=== PATIENT | female | born 1990 | race Caucasian/White ===

== ENCOUNTER → 2017-11-28 | Emergency (ER) | payer MEDICAID ==
[~2017-11-28] VITALS: Ht 170.2 cm; Wt 58.9 kg
[~2017-11-28] MED LIST: BUPIVAcaine/PF 2.5 mg/ml (0.25%) 30ml vial IJ ONE; CEPH500C5 PO; IBUP-1984 PO; TETanus/Pertussis (Acell)/Diphther VAC/PF (Tdap-Adult) 0.5ml syringe IM ONE
[2017-11-28 19:43] VITALS: BP 117/97
== END | disposition home or self-care (01) ==
LOC: ER 19:41
DX: S61.211A Laceration without foreign body of left index finger without damage to nail, initial encounter (principal); W45.8XXA Other foreign body or object entering through skin, initial encounter; Y93.89 Activity, other specified; Y92.89 Other specified places as the place of occurrence of the external cause; Y99.9 Unspecified external cause status
CPT/HCPCS: 12001; 90471; 90715; 99283; A6449; J3490

== ENCOUNTER 2017-11-30 09:17 | Emergency (ER) | payer MEDICAID ==
[~2017-11-30] VITALS: Ht 170.2 cm; Wt 71.0 kg
[~2017-11-30 09:17] MED LIST changes: -BUPIVAcaine/PF 2.5 mg/ml (0.25%) 30ml vial IJ ONE; -CEPH500C5 PO; -TETanus/Pertussis (Acell)/Diphther VAC/PF (Tdap-Adult) 0.5ml syringe IM ONE
[2017-11-30 09:30] VITALS: BP 163/73
[2017-11-30] MEDS ORDERED: CEPH500C5 PO (10:57)
== END 2017-11-30 11:09 | disposition home or self-care (01) ==
LOC: ER 09:18
DX: L08.89 Other specified local infections of the skin and subcutaneous tissue (principal); S61.211D Laceration without foreign body of left index finger without damage to nail, subsequent encounter; W45.8XXD Other foreign body or object entering through skin, subsequent encounter
CPT/HCPCS: 99283

== ENCOUNTER 2017-12-07 08:46 | Emergency (ER) | payer MEDICAID ==
[~2017-12-07] VITALS: Ht 170.2 cm; Wt 63.6 kg
[~2017-12-07 08:46] MED LIST changes: +CEPH500C5 PO
[2017-12-07 09:04] VITALS: BP 120/74
== END 2017-12-07 09:48 | disposition home or self-care (01) ==
LOC: ER 08:46
DX: Z48.02 Encounter for removal of sutures (principal); Z79.899 Other long term (current) drug therapy
CPT/HCPCS: 99281

== ENCOUNTER 2018-04-07 20:36 | Emergency (ER) | payer MEDICAID ==
[~2018-04-07] VITALS: Ht 170.2 cm; Wt 71.1 kg
[~2018-04-07 20:36] MED LIST changes: -IBUP-1984 PO
[2018-04-07 21:36] VITALS: BP 137/79
== END 2018-04-08 02:56 | disposition left against medical advice (07) ==
LOC: ER 20:36
DX: J45.909 Unspecified asthma, uncomplicated (principal); Z53.21 Procedure and treatment not carried out due to patient leaving prior to being seen by health care provider

== ENCOUNTER 2018-04-20 15:35 | Emergency (ER) | payer MEDICAID ==
[~2018-04-20] VITALS: Ht 170.2 cm; Wt 67.8 kg
[2018-04-20] MEDS ORDERED: normal saline 1000ML IV soln IVB ONE (15:45)
[2018-04-20] MEDS ORDERED: albuterol 2.5 MG/3 ML nebule CONTNEB PRN (15:45)
[2018-04-20] MEDS ORDERED: magnesium 1gm/100ml D5W IVPB 100 ML IV ONE (15:45)
[2018-04-20] MEDS ORDERED: methylPREDNISolone sod succ 125mg/2ml vial IV ONE (15:45)
[2018-04-20] MEDS ORDERED: ALBU6.7H INH (16:13)
[2018-04-20] MEDS ORDERED: PRED20TA PO (16:13)
[2018-04-20 17:06] VITALS: BP 134/76
== END 2018-04-20 17:09 | disposition home or self-care (01) ==
LOC: ER 15:35
DX: J45.901 Unspecified asthma with (acute) exacerbation (principal); Z79.899 Other long term (current) drug therapy
CPT/HCPCS: 71045; 94644; 96365; 96375; 99291; J2930; J7030; 94640

== ENCOUNTER 2018-09-01 08:29 | Emergency (ER) | payer MEDICAID ==
[~2018-09-01] VITALS: Ht 170.2 cm; Wt 69.5 kg
[~2018-09-01 08:29] MED LIST changes: +ALBU6.7H INH; +METH4TAB81 PO
[2018-09-01] MEDS ORDERED: magnesium 2GM in 50ml NS 50 ML IV ONE (08:50)
[2018-09-01] MEDS ORDERED: albuterol 2.5 MG/3 ML nebule CONTNEB PRN (08:50)
[2018-09-01] MEDS ORDERED: methylPREDNISolone sod succ 125mg/2ml vial IV ONE (08:50)
[2018-09-01] MEDS ORDERED: ipratropium 0.5 MG/2.5ML nebule IH ONE (08:50)
[2018-09-01] MEDS ORDERED: ipratropium/albuterol 3ml nebule NEB ONE (08:50)
[2018-09-01] MEDS ORDERED: normal saline 1000ML IV soln IVB ONE (08:55)
[2018-09-01 10:22] VITALS: BP 142/67
[2018-09-01] MEDS ORDERED: PRED20TA PO (11:29)
[2018-09-01] MEDS ORDERED: AZIT-63 PO (11:29)
== END 2018-09-01 12:34 | disposition home or self-care (01) ==
LOC: ER 08:30
DX: J45.909 Unspecified asthma, uncomplicated (principal); Z79.899 Other long term (current) drug therapy
CPT/HCPCS: 94640; 94760; 96365; 96375; 99284; J2930; J3475; J7030; 99283

== ENCOUNTER 2018-12-02 08:09 | Emergency (ER) | payer MEDICAID, OTHER ==
[~2018-12-02] VITALS: Ht 170.2 cm; Wt 72.7 kg
[~2018-12-02 08:09] MED LIST changes: -CEPH500C5 PO
--- NOTE | 2018-12-02 08:37 | NUR ---
DR ADRIAN NOTIFIED OF PT SOB AND SPO2 89% YOUNG PERSON HX OF ASTHMA AND COUGH, NO ORDER RECEIVED AT THIS TIME, ORDERED CHEST XRAY PER PROTOCOL
[2018-12-02] MEDS ORDERED: ipratropium/albuterol 3ml nebule NEB ONE (09:05)
[2018-12-02] MEDS ORDERED: methylPREDNISolone sod succ 125mg/2ml vial IV ONE (09:05)
[2018-12-02] MEDS ORDERED: normal saline 1000ML IV soln IVB ONE (09:05)
--- NOTE | 2018-12-02 09:43 | NUR ---
STARTED IV, MEDICATED PT WITH IV FLUIDS AND SOLUMEDROL, PT RECEIVED BREATHING TREATMENT PER ORDERS, LS STILL HAVING WHEEZES BUT IMPROVED LUNG SOUNDS AND SPO2 97% ON 2 L/MIN OXYGEN VIA NC
--- NOTE | 2018-12-02 10:18 | NUR ---
PT TAKEN OFF OF OXYGEN FOR ROOM AIR SPO2% RESULT.
[2018-12-02] MEDS ORDERED: albuterol 2.5 MG/3 ML nebule NEB ONE (10:20)
--- NOTE | 2018-12-02 10:23 | NUR ---
DR ADRIAN INFORMED ROOM AIR SPO2 93-94%, DR ADRIAN STATES WILL ORDER ANOTHER BREATHING TREATMENT AND THEN RE-EVALUATE PT AFTER REGARDING HOW PT IS FEELING GETTING UP AND WALKING AND HER ROOM AIR SPO2%.
[2018-12-02] MEDS ORDERED: albuterol 2.5 MG/3 ML nebule ONE (10:35)
--- NOTE | 2018-12-02 11:20 | NUR ---
PT SPO2% 90% ON ROOM AIR AFTER SECOND BREATHING TREATMENT, INSTRUCTED PT TO DEEP BREATH AND COUGH A COUPLE OF TIMES.
--- NOTE | 2018-12-02 11:31 | NUR ---
DR ADRIAN INFORMED PT IS FEELING BETTER AFTER SECOND BREATHING TREATMENT BUT SPO2 90%, VERBAL REQUEST TO AMBULATE PT WITH PULSE OX AND REPORT BACK TO NGUYỄN HOW PT FEELS AND SPO2%
--- NOTE | 2018-12-02 11:37 | NUR ---
ROSANNE PHYSICAL TRAINER AMBULATED PT AND PT SPO2 89-90% HEART RATE UP TO 104 AND THEN BACK INTO THE 90S BACK IN BED 11
--- NOTE | 2018-12-02 11:43 | NUR ---
DR ADRIAN TO SPEAK WITH PT ABOUT BEING ADMITTED VS DISCHARGE HOME.
[2018-12-02 12:04] VITALS: BP 149/78
[2018-12-02] MEDS ORDERED: PRED20TA PO (12:06)
== END 2018-12-02 12:29 | disposition home or self-care (01) ==
LOC: ER 08:09
DX: J45.901 Unspecified asthma with (acute) exacerbation (principal); Z79.899 Other long term (current) drug therapy
CPT/HCPCS: 71045; 94640; 94760; 96374; 99284; J2930; J7030

== ENCOUNTER 2019-02-03 08:06 | Inpatient (IN) | payer MEDICAID ==
[~2019-02-03] VITALS: Ht 170.2 cm; Wt 72.7 kg
[2019-02-03] MEDS ORDERED: normal saline 1000ML IV soln IVB ONE (08:30)
[2019-02-03] MEDS ORDERED: methylPREDNISolone sod succ 125mg/2ml vial IV ONE (08:30)
[2019-02-03] MEDS ORDERED: albuterol 2.5 mg/0.5ml nebule NEB ONE (08:30)
[2019-02-03] MEDS ORDERED: albuterol 2.5 MG/3 ML nebule NEB ONE (08:35)
[2019-02-03 08:59] LABS: BASOPHILS % (AUTO) 0.8 % (0-1); EOSINOPHILS # (AUTO) 0.5 X10'3 (0-0.9); EOSINOPHILS % (AUTO) 8.8 % (0-6); HEMATOCRIT 41.2 % (35.0-45.0); HEMOGLOBIN 13.6 g/dl (12.0-16.0); LYMPHOCYTES # (AUTO) 1.1 X10'3 (1.1-4.8); LYMPHOCYTES % (AUTO) 19.7 % (21-51); MEAN CORPUSCULAR HEMOGLOBIN 30.1 PG (27.0-31.0); MEAN CORPUSCULAR VOLUME 91.2 FL (78-98); MEAN PLATELET VOLUME 8.1 FL (7.4-10.4); MONOCYTES # (AUTO) 0.5 X10'3 (0-0.9); MONOCYTES % (AUTO) 9.4 % (2-12); NEUTROPHILS # (AUTO) 3.4 X10'3 (1.8-7.7); NEUTROPHILS % (AUTO) 61.3 % (42-75); PLATELET COUNT 224 X10'3 (140-440); RED BLOOD COUNT 4.52 X10'6 (4.20-5.60); WHITE BLOOD COUNT 5.6 X10'3 (4.5-11.0)
[2019-02-03] MEDS ORDERED: albuterol 2.5 MG/3 ML nebule CONTNEB PRN (09:05)
[2019-02-03 09:21] LABS: ALANINE AMINOTRANSFERASE 13 U/L (12-78); ALBUMIN 3.6 G/DL (3.4-5.0); ALBUMIN/GLOBULIN RATIO 0.8 (1.1-1.5); ALKALINE PHOSPHATASE 67 IU/L (46-116); ANION GAP 8 (8-16); ASPARTATE AMINO TRANSFERASE 11 U/L (10-37); BILIRUBIN,TOTAL 0.2 MG/DL (0.1-1.0); BLOOD UREA NITROGEN 8 MG/DL (7-18); BUN/CREATININE RATIO 11.8 (6.6-38.0); CALCIUM 8.8 MG/DL (8.5-10.1); CHLORIDE 105 MMOL/L (99-107); CREATININE 0.68 MG/DL (0.40-0.90); GLUCOSE 111 MG/DL (70-104); POTASSIUM 3.7 MMOL/L (3.5-5.1); SODIUM 139 MMOL/L (135-145); TOTAL CARBON DIOXIDE 26.4 MMOL/L (24-32); TOTAL PROTEIN 8.3 G/DL (6.4-8.2); eGFR > 90 ML/MIN
[2019-02-03] MEDS ORDERED: CefTRIAXone 2gm/D5W 50ml 50 ML IV ONE (09:45)
[2019-02-03] MEDS ORDERED: potassium Cl 40MEQ/NS 500ml 500 ML IV PRN (09:50)
[2019-02-03] MEDS ORDERED: magnesium hydroxide 30ml (MOM) UD suspension PO PRN (09:50)
[2019-02-03] MEDS: K and/or MAG REPLACEMENT MC SCH (09:50)
[2019-02-03] MEDS ORDERED: mag hydrox/Alum hydrox/simeth 30ml oral suspension PO PRN (09:50)
[2019-02-03] MEDS ORDERED: magnesium Cl slow-release 64mg tablet PO PRN (09:50)
[2019-02-03] MEDS ORDERED: diphenhydrAMINE 25mg capsule PO PRN (09:50)
[2019-02-03] MEDS ORDERED: morphine 2 MG/ML inj. syringe IV PRN ×2 (09:50)
[2019-02-03] MEDS ORDERED: potassium CL 10mEq/100ml bag 100 ML IV PRN (09:50)
[2019-02-03] MEDS ORDERED: potassium Cl 20 mEq SR tablet PO PRN ×2 (09:50)
[2019-02-03] MEDS ORDERED: HYDROcodone/acetaminophen 5mg/325mg tablet PO PRN (09:50)
[2019-02-03] MEDS ORDERED: HYDROcodone/acetaminophen 10/325mg tab PO PRN (09:50)
[2019-02-03] MEDS ORDERED: magnesium 2GM in 50ml NS 50 ML IV PRN (09:50)
[2019-02-03] MEDS ORDERED: acetaminophen 325mg tablet PO PRN (09:50)
[2019-02-03] MEDS ORDERED: magnesium 4gm in 100ml NS 100 ML IV PRN (09:50)
--- NOTE | 2019-02-03 10:11 | NUR ---
BLOOD CULTURES AND LACTIC DRAWN PRIOR TO ABX START
[2019-02-03 10:32] LABS: CLARITY,URINE CLEAR (Clear); COLOR,URINE STRAW (Yellow); GLUCOSE, URINE NEGATIVE (Neg); KETONES,URINE NEGATIVE (Neg); LEUKOCYTE ESTERASE ,URINE NEGATIVE (Neg); NITRITES, URINE NEGATIVE (Neg); OCCULT BLOOD,URINE TRACE-INTACT (Neg); PH,URINE 5.5 (4.8-8.0); PROTEIN,URINE NEGATIVE (Neg); UROBILINOGEN,URINE 0.2 E.U/dL (0.2-1.0)
[2019-02-03 10:38] LABS: UA COLLECTION TYPE CLN CATCH MIDSTREAM
[2019-02-03 10:39] LABS: BACTERIA,URINE FEW /HPF (Neg); RBC,URINE 0-2 /HPF (0-2); SQUAMOUS EPITHELIAL CELL,UR FEW /LPF (FEW); WBC,URINE 0-4 /HPF (0-4)
[2019-02-03] MEDS: levoFLOXACIN-Levaquin 750MG/D5 150 ML IV SCH (10:59)
[2019-02-03] MEDS: normal saline 1000ml 1,000 ML IV SCH ×2 (10:59→19:30)
[2019-02-03] MEDS ORDERED: GUAI1TAB PO (12:14)
[2019-02-03] MEDS ORDERED: ALBU8.5H8 INH (12:14)
[2019-02-03] MEDS: methylPREDNISolone sod succ 125mg/2ml vial IV SCH ×2 (14:10→20:38)
[2019-02-03 17:27] VITALS: BP 153/87
[2019-02-03 18:00] VITALS: BP 142/89
--- NOTE | 2019-02-03 18:18 | NUR ---
Problems reprioritized. Patient report given, questions answered & plan of care reviewed with ANICETO Bauer.
[2019-02-03] MEDS ORDERED: ipratropium/albuterol 3ml nebule IH PRN ×2 (18:55→19:05)
[2019-02-03] MEDS ORDERED: albuterol 2.5 MG/3 ML nebule NEB PRN ×2 (18:55→19:30)
--- NOTE | 2019-02-03 18:59 | NUR ---
Paged hospitalist for neb orders on pt, only ones active are ER orders currently. Page Sent PAGER ID: [phone] MESSAGE: Rm: [phone], Julia Kelly, need orders for nebs. Call Lizette at [phone]
--- NOTE | 2019-02-03 19:30 | NUR ---
Dr. Garcia called back, new neb orders entered.
[2019-02-03] MEDS: heparin, porcine 5000 units/ml vial SQ SCH (19:55)
[2019-02-03] MEDS: lactobacillus rhamnosus 10,000 MMU CELLS/CAPSULE PO SCH (19:55)
[2019-02-03] MEDS: acetaminophen 325mg tablet PO PRN (21:53)
[2019-02-03 22:00] VITALS: BP 144/80
[2019-02-04 02:00] VITALS: BP 122/56
[2019-02-04] MEDS: temazepam 15mg capsule PO PRN ×2 (02:37→23:20)
[2019-02-04] MEDS: methylPREDNISolone sod succ 125mg/2ml vial IV SCH ×3 (02:37→14:53)
--- NOTE | 2019-02-04 02:57 | NUR ---
Paged hospitalist re: nebs Page Sent PAGER ID: [phone] MESSAGE: Rm: [phone], Julia Kelly, Pt very unhappy with only Q6 Albuterol nebs, says its not helping at all. Sats only at 88% at 4L NC w/treatments. She's requesting another continuous neb like she had in ED. Call Lizette at [phone]
[2019-02-04] MEDS ORDERED: albuterol 2.5 MG/3 ML nebule CONTNEB ONE (03:05)
--- NOTE | 2019-02-04 03:09 | NUR ---
Jose ordered one time dose of continuous Albuterol neb for 1hr, also added scheduled Q4 duonebs.
[2019-02-04] MEDS: normal saline 1000ml 1,000 ML IV SCH (05:46)
[2019-02-04 06:00] VITALS: BP 119/61
--- NOTE | 2019-02-04 06:21 | NUR ---
Patient in room PCU 3025. I have received report from Lizette MORELAND and had the opportunity to ask questions and assume patient care.
[2019-02-04 06:30] LABS: BASOPHILS % (AUTO) 0.1 % (0-1); EOSINOPHILS % (AUTO) 0 % (0-6); HEMATOCRIT 37.3 % (35.0-45.0); HEMOGLOBIN 12.4 g/dl (12.0-16.0); LYMPHOCYTES # (AUTO) 0.5 X10'3 (1.1-4.8); LYMPHOCYTES % (AUTO) 4.4 % (21-51); MEAN CORPUSCULAR HEMOGLOBIN 29.9 PG (27.0-31.0); MEAN CORPUSCULAR HGB CONC 33.2 g/dL (33.0-36.5); MEAN CORPUSCULAR VOLUME 90.1 FL (78-98); MEAN PLATELET VOLUME 7.9 FL (7.4-10.4); MONOCYTES # (AUTO) 0.3 X10'3 (0-0.9); MONOCYTES % (AUTO) 2.5 % (2-12); NEUTROPHILS # (AUTO) 10.7 X10'3 (1.8-7.7); PLATELET COUNT 235 X10'3 (140-440); RED BLOOD COUNT 4.14 X10'6 (4.20-5.60); RED CELL DISTRIBUTION WIDTH 14.1 % (11.5-14.5); WHITE BLOOD COUNT 11.5 X10'3 (4.5-11.0)
[2019-02-04 06:59] LABS: ALANINE AMINOTRANSFERASE 15 U/L (12-78); ALBUMIN/GLOBULIN RATIO 0.7 (1.1-1.5); ALKALINE PHOSPHATASE 61 IU/L (46-116); ANION GAP 10 (8-16); ASPARTATE AMINO TRANSFERASE 12 U/L (10-37); BILIRUBIN,TOTAL 0.2 MG/DL (0.1-1.0); BLOOD UREA NITROGEN 7 MG/DL (7-18); BUN/CREATININE RATIO 11.9 (6.6-38.0); CALCIUM 8.9 MG/DL (8.5-10.1); CHLORIDE 108 MMOL/L (99-107); CREATININE 0.59 MG/DL (0.40-0.90); GLUCOSE 149 MG/DL (70-104); PHOSPHORUS 2.9 MG/DL (2.3-4.5); POTASSIUM 3.7 MMOL/L (3.5-5.1); SODIUM 142 MMOL/L (135-145); TOTAL CARBON DIOXIDE 23.9 MMOL/L (24-32); TOTAL PROTEIN 7.3 G/DL (6.4-8.2); eGFR > 90 ML/MIN
[2019-02-04] MEDS: lactobacillus rhamnosus 10,000 MMU CELLS/CAPSULE PO SCH ×2 (07:29→23:20)
[2019-02-04] MEDS: levoFLOXACIN-Levaquin 750MG/D5 150 ML IV SCH (07:29)
[2019-02-04] MEDS: heparin, porcine 5000 units/ml vial SQ SCH (07:31)
[2019-02-04] MEDS: K and/or MAG REPLACEMENT MC SCH (07:47)
[2019-02-04] MEDS: ipratropium/albuterol 3ml nebule NEB SCH ×5 (07:58→23:16)
--- NOTE | 2019-02-04 08:27 | NUR ---
PAGER ID: [phone] MESSAGE: [phone] Julia Kelly has had a heart rate of 130's for a while. ANICETO Monaco ext [phone]
--- NOTE | 2019-02-04 09:11 | NUR ---
Page to Dr Mckoy re:Room 5902C Julia Kelly HR ST [id number] at rest asymptomatic please advise Tamika [phone] awaiting call back
[2019-02-04] MEDS ORDERED: ipratropium/albuterol 3ml nebule NEB SCH (11:00)
[2019-02-04 11:11] VITALS: BP 160/75
[2019-02-04 15:15] VITALS: BP 132/69
[2019-02-04] MEDS: acetaminophen 325mg tablet PO PRN (16:02)
--- NOTE | 2019-02-04 17:24 | NUR ---
[place] documentation: I have reviewed and agree with all interventions, assessments performed and documented by ANICETO Monaco.
--- NOTE | 2019-02-04 17:25 | NUR ---
[place] Medication Administration: For this medication-pass time frame, all medication were reviewed, dispensed, administered and documented per hospital policy by ANICETO Monaco.
--- NOTE | 2019-02-04 18:30 | NUR ---
Problems reprioritized. Patient report given, questions answered & plan of care reviewed with Brijesh MORELAND.
[2019-02-04 19:00] VITALS: BP 136/78
[2019-02-04 23:00] VITALS: BP 141/67
[2019-02-05] MEDS: methylPREDNISolone sod succ/PF 40mg inj. IV SCH ×2 (02:37→06:58)
[2019-02-05 03:00] VITALS: BP 104/62
[2019-02-05] MEDS: ipratropium/albuterol 3ml nebule NEB SCH ×2 (03:02→08:07)
[2019-02-05 05:21] LABS: BASOPHILS % (AUTO) 0.1 % (0-1); EOSINOPHILS % (AUTO) 0 % (0-6); HEMATOCRIT 36.9 % (35.0-45.0); HEMOGLOBIN 12.3 g/dl (12.0-16.0); LYMPHOCYTES # (AUTO) 0.9 X10'3 (1.1-4.8); LYMPHOCYTES % (AUTO) 6.6 % (21-51); MEAN CORPUSCULAR HEMOGLOBIN 30.1 PG (27.0-31.0); MEAN CORPUSCULAR HGB CONC 33.4 g/dL (33.0-36.5); MEAN PLATELET VOLUME 7.8 FL (7.4-10.4); MONOCYTES # (AUTO) 0.7 X10'3 (0-0.9); MONOCYTES % (AUTO) 5.2 % (2-12); NEUTROPHILS # (AUTO) 11.9 X10'3 (1.8-7.7); NEUTROPHILS % (AUTO) 88.1 % (42-75); PLATELET COUNT 253 X10'3 (140-440); RED CELL DISTRIBUTION WIDTH 14.6 % (11.5-14.5); WHITE BLOOD COUNT 13.6 X10'3 (4.5-11.0)
[2019-02-05 05:22] LABS: ALANINE AMINOTRANSFERASE 15 U/L (12-78); ALBUMIN 3.2 G/DL (3.4-5.0); ALBUMIN/GLOBULIN RATIO 0.8 (1.1-1.5); ALKALINE PHOSPHATASE 55 IU/L (46-116); ANION GAP 8 (8-16); ASPARTATE AMINO TRANSFERASE 9 U/L (10-37); BILIRUBIN,TOTAL 0.2 MG/DL (0.1-1.0); BLOOD UREA NITROGEN 14 MG/DL (7-18); BUN/CREATININE RATIO 26.9 (6.6-38.0); CALCIUM 8.8 MG/DL (8.5-10.1); CHLORIDE 107 MMOL/L (99-107); CREATININE 0.52 MG/DL (0.40-0.90); GLUCOSE 111 MG/DL (70-104); MAGNESIUM 2.3 MG/DL (1.5-2.4); PHOSPHORUS 3.4 MG/DL (2.3-4.5); POTASSIUM 3.8 MMOL/L (3.5-5.1); SODIUM 140 MMOL/L (135-145); TOTAL CARBON DIOXIDE 25.4 MMOL/L (24-32); TOTAL PROTEIN 7.4 G/DL (6.4-8.2); eGFR > 90 ML/MIN
--- NOTE | 2019-02-05 06:32 | NUR ---
Patient in room PCU 3013. I have received report from Brijesh MORELAND and had the opportunity to ask questions and assume patient care.
[2019-02-05] MEDS: lactobacillus rhamnosus 10,000 MMU CELLS/CAPSULE PO SCH (06:58)
[2019-02-05] MEDS: acetaminophen 325mg tablet PO PRN (06:58)
[2019-02-05 07:00] VITALS: BP 128/68
[2019-02-05] MEDS: K and/or MAG REPLACEMENT MC SCH (08:00)
[2019-02-05] MEDS ORDERED: LEVO750T46 PO (09:32)
[2019-02-05] MEDS ORDERED: ADV50250 IH (09:32)
[2019-02-05] MEDS ORDERED: ALBU8.5H8 IH (10:12)
--- NOTE | 2019-02-05 10:35 | NUR ---
Discharge instructions given to patient, patient verbalized understanding of all instructions made. New prescriptions called in to [facility] pharmacy per patient request. Peripheral IV catheter removed, tip intact. Instructed patient to ensure she all her belongings before she leave the hospital
[2019-02-05] MEDS ORDERED: levoFLOXACIN 750MG TABLET PO SCH (11:00)
--- NOTE | 2019-02-05 13:44 | NUR ---
[facility] pharmacist called the unit regarding patient's new prescription for Advair diskus denied by [facility] because it is a combination drup. Dr. Chacon notified about this via paging system. Yolanda MORELAND who covered me for lunch said that Dr. Chacon called back and said that it was okay for the patient not to have Advair diskus. Dr. Chacon advised that patient need to address this to her primary care physician. I called the patient and let her know about the advise of Dr. Chacon that she will need to speak to her PCP about switching the Advair diskus into an alternative drug if necessary.
== END 2019-02-05 10:35 | disposition home or self-care (01) | DRG 139 ==
LOC: ER 08:07 → PCU 3S 16:37 → CMPBEDREQ 19:47 → PCU 3S 02-04 07:55
PROVIDERS: ADMIT Family Medicine; ATTEND Internal Medicine
DX: J18.9 Pneumonia, unspecified organism (principal); J96.01 Acute respiratory failure with hypoxia; J45.41 Moderate persistent asthma with (acute) exacerbation; F12.10 Cannabis abuse, uncomplicated; R00.0 Tachycardia, unspecified; Z79.899 Other long term (current) drug therapy; Z98.891 History of uterine scar from previous surgery
CPT/HCPCS: 36415; 71045; 80053; 81001; 83605; 83735; 84100; 85025; 87040; 87070; 94640; 94644; 94760; 96361; 96365; 96366; 96375; 99285; G0378; J0696; J1644; J1956; J2920; J2930; J7030; J7611

== ENCOUNTER 2020-02-26 06:03 | Emergency (ER) | payer MEDICAID ==
[~2020-02-26] VITALS: Ht 170.2 cm; Wt 63.6 kg
[~2020-02-26 06:03] MED LIST changes: -ALBU6.7H INH; +ALBU8.5H8 IH; +GUAI1TAB PO; +LEVO750T46 PO; -METH4TAB81 PO
[2020-02-26 06:05] VITALS: BP 146/58
--- NOTE | 2020-02-26 07:21 | NUR ---
orthopedic brace maker present with pt
== END 2020-02-26 07:36 | disposition home or self-care (01) ==
LOC: ER 06:04
DX: S63.502A Unspecified sprain of left wrist, initial encounter (principal); M25.532 Pain in left wrist; M25.432 Effusion, left wrist; J45.909 Unspecified asthma, uncomplicated; J44.9 Chronic obstructive pulmonary disease, unspecified; F12.90 Cannabis use, unspecified, uncomplicated; Z98.890 Other specified postprocedural states; Z79.2 Long term (current) use of antibiotics; W19.XXXA Unspecified fall, initial encounter; Y93.89 Activity, other specified; Y92.89 Other specified places as the place of occurrence of the external cause; Y99.8 Other external cause status
CPT/HCPCS: 29125; 73110; 99283

== ENCOUNTER 2022-10-01 17:55 | Emergency (ER) | payer MEDICAID ==
[~2022-10-01] VITALS: Ht 170.2 cm; Wt 65.9 kg
[~2022-10-01 17:55] MED LIST changes: +ALBU8.5H17 IH; -ALBU8.5H8 IH; -LEVO750T46 PO; +LEVO750T68 PO
[2022-10-01 18:19] LABS: BASOPHILS % (AUTO) 0.5 % (0-1); EOSINOPHILS # (AUTO) 0.2 X10'3 (0-0.9); EOSINOPHILS % (AUTO) 2.8 % (0-6); HEMATOCRIT 38.7 % (35.0-45.0); HEMOGLOBIN 12.7 g/dl (12.0-16.0); LYMPHOCYTES # (AUTO) 1.8 X10'3 (1.1-4.8); LYMPHOCYTES % (AUTO) 22.4 % (21-51); MEAN CORPUSCULAR HGB CONC 32.8 g/dL (33.0-36.5); MEAN CORPUSCULAR VOLUME 91.5 FL (78-98); MEAN PLATELET VOLUME 7.5 FL (7.4-10.4); MONOCYTES % (AUTO) 12.5 % (2-12); NEUTROPHILS % (AUTO) 61.8 % (42-75); PLATELET COUNT 270 X10'3 (140-440); RED BLOOD COUNT 4.23 X10'6 (4.20-5.60); RED CELL DISTRIBUTION WIDTH 14.2 % (11.5-14.5); WHITE BLOOD COUNT 8.1 X10'3 (4.5-11.0)
[2022-10-01 18:31] LABS: ALANINE AMINOTRANSFERASE 14 U/L (12-78); ALBUMIN/GLOBULIN RATIO 0.9 (1.1-1.5); ALKALINE PHOSPHATASE 70 IU/L (46-116); ANION GAP 11 (8-16); ASPARTATE AMINO TRANSFERASE 13 U/L (10-37); BILIRUBIN,TOTAL 0.4 MG/DL (0.1-1.0); BLOOD UREA NITROGEN 7 MG/DL (7-18); BUN/CREATININE RATIO 7.6 (6.6-38.0); CALCIUM 9.3 MG/DL (8.5-10.1); CHLORIDE 100 MMOL/L (99-107); CREATININE 0.92 MG/DL (0.40-0.90); GLUCOSE 108 MG/DL (70-104); POTASSIUM 3.7 MMOL/L (3.5-5.1); SODIUM 134 MMOL/L (135-145); TOTAL CARBON DIOXIDE 22.9 MMOL/L (24-32); TOTAL PROTEIN 8.6 G/DL (6.4-8.2); eGFR 70 ML/MIN
[2022-10-01 18:36] LABS: MAGNESIUM 2.1 MG/DL (1.5-2.4)
[2022-10-01] MEDS ORDERED: albuterol 2.5 MG/3 ML nebule CONTNEB PRN (18:40)
[2022-10-01] MEDS ORDERED: methylPREDNISolone sod succ 125mg/2ml vial IV ONE (18:40)
[2022-10-01] MEDS ORDERED: magnesium 2GM in 50ml NS 50 ML IV ONE (18:40)
[2022-10-01] MEDS ORDERED: LEVO-65 PO (20:07)
[2022-10-01] MEDS ORDERED: GUAI1TBM19 PO (20:09)
[2022-10-01] MEDS ORDERED: levoFLOXACIN 750MG TABLET PO ONE (20:10)
[2022-10-01 20:34] VITALS: BP 138/77
== END 2022-10-01 20:35 | disposition home or self-care (01) ==
LOC: ER 17:55
DX: J44.1 Chronic obstructive pulmonary disease with (acute) exacerbation (principal); F12.90 Cannabis use, unspecified, uncomplicated; Z98.890 Other specified postprocedural states; Z79.899 Other long term (current) drug therapy
CPT/HCPCS: 36415; 71045; 80053; 83735; 83880; 84484; 85025; 93005; 94640; 94644; 96365; 96375; 99285; J2930; J3475; 94760; A7015